=== PATIENT | male | born 1950 | race Caucasian/White ===

== ENCOUNTER → 2021-08-18 13:30 | Outpatient (CLI) | payer OTHER, SELFPAY ==
[2021-08-18 17:53] LABS: COVID19 -Nasal RAPID Negative (Negative)
== END ==
PROVIDERS: Visit Provider Nurse Practitioner Family
DX: Z20.822 Contact with and (suspected) exposure to COVID-19 (principal)
CPT/HCPCS: 87635

== ENCOUNTER 2021-08-19 08:53 | Day surgery (SDC) | payer OTHER, SELFPAY ==
[2021-08-19 09:57] VITALS: BP 133/87; PULSE 91; RESP 14; TEMP 36.8; O2SAT 96; BMI 23.0
[2021-08-19] MEDS: CATARACT EYE COMPOUND (10 DROPS/SYRINGE) 3 DROPS EYE-OP (10:10)
[2021-08-19] MEDS: PROPARACAINE 0.5% OPHTH SOL 2 DROPS EYE-OP (10:11)
--- NOTE | 2021-08-19 10:43 | PM.PREOP ---
Pre-operative Note Interval Note History & Physical reviewed/Exam performed by Physician: Yes Changes to H&P: No
--- NOTE | 2021-08-19 10:43 | PM.OP.1 ---
Operative Date/Time/Diagnoses Pre-op diagnosis: Nuclear cataract right eye Procedure & Clinicians Procedure: Cataract Surgery Same procedure as scheduled: Yes Surgeon: Mandeep Fink Anesthesia Type: MAC +/- and Sedation Operative Notes Procedure in detail: Patient brought to the operating suite. Tetracaine drops placed in the right eye. Marking isntrument was used to benigno the vertical and horizontal meridians. Patient was prepped and draped in sterile manner. Wire lid speculum was placed in the eye. Marking instrument was used to benigno the 5 degree meridian. Betadine drops were placed on the eye. This was irrigated. Lidocaine jelly was placed on the eye. A paracentesis port was created with a side-port blade. 0.1 mL 1% preservative free lidocaine was injected into the anterior chamber. The anterior chamber was deepened with viscoelastic. 2.6 mm keratome was used to create a temporal clear corneal incision. Cystotome and Utrata forceps were used to create continuous tear capsulorrhexis. Balanced salt solution was used to hydro dissect the nucleus. The phacoemulsification handpiece was inserted and the nucleus was removed using the stop and chop technique. The irrigation aspiration handpiece was inserted and the remaining cortex was removed. Anterior chamber was deepened with viscoelastic. An Candelaria KQJ013 intraocular lens with a power of 20.5 was injected into the capsular bag. Irrigation aspiration handpiece was inserted and the remaining viscoelastic was removed. The lens was rotated to the 5 degree meridian. Incision was hydrated with balanced salt solution and found to be leak free with pressure with Weck-Nimisha sponges. 0.1 mL Vigamox injected anterior chamber. 0.3 mL Kenalog 10 mg was injected subconjunctivally. Lid speculum was removed. The patient left the operating room in excellent condition. Complications: none Post-operative Condition: stable Disposition: same day surgery
[2021-08-19 11:36] VITALS: BP 129/79; PULSE 98; RESP 16; TEMP 36.6; O2SAT 97
== END 2021-08-19 12:05 | disposition home or self-care (01) ==
PROVIDERS: PCP Internal Medicine; Referring Provider Ophthalmology; Visit Provider Ophthalmology
PROC: (CPT 66984; principal; 2021-08-19 10:45)
DX: H25.11 Age-related nuclear cataract, right eye (principal)
CPT/HCPCS: 66984; J0171; J2250; J3301; V2787

== ENCOUNTER → 2021-08-25 08:45 | Outpatient (CLI) | payer OTHER, SELFPAY ==
[2021-08-25 11:56] LABS: COVID19 -Nasal RAPID Negative (Negative)
== END ==
PROVIDERS: PCP Internal Medicine; Visit Provider Nurse Practitioner Family
DX: Z20.822 Contact with and (suspected) exposure to COVID-19 (principal)
CPT/HCPCS: 87635

== ENCOUNTER 2021-08-26 06:39 | Day surgery (SDC) | payer OTHER, SELFPAY ==
[2021-08-26 07:08] VITALS: BP 132/83; PULSE 74; RESP 16; TEMP 36.6; O2SAT 97; BMI 23.0
--- NOTE | 2021-08-26 08:07 | P.OP_ITS ---
Operative Date/Time/Diagnoses Pre-op diagnosis: Nuclear Cataract Left eye Post-op diagnosis: same Procedure & Clinicians Same procedure as scheduled: Yes Surgeon: Mandeep Fink Anesthesia Type: MAC +/- and Sedation Operative Notes Procedure in detail: Patient brought to the operating suite. Tetracaine drops placed in the left eye. Marking instrument was used to benigno the vertical and horizontal meridians. Patient was prepped and draped in sterile manner. Wire lid speculum was placed in the eye. Betadine drops were placed on the eye. This was irrigated. Li docaine jelly was placed on the eye. A paracentesis port was created with a side-port blade. 0.1 mL 1% preservative free lidocaine was injected into the anterior chamber. The anterior chamber was deepened with viscoelastic. 2.6 mm keratome was used to create a temporal clear corneal incision. Cystotome and Utrata forceps were used to create continuous tear capsulorrhexis. Balanced salt solution was used to hydro dissect the nucleus. The phacoemulsification handpiece was inserted and the nucleus was removed using the stop and chop technique. The irrigation aspiration handpiece was inserted and the remaining cortex was removed. Anterior chamber was deepened with viscoelastic. An Candelaria ZQJ335 intraocular lens with a power of 20.5 was injected into the capsular bag. Irrigation aspiration handpiece was inserted and the remaining viscoelastic was removed. The lens was rotated to the 180 degree meridian. Incision was hydrated with balanced salt solution and found to be leak free with pressure with Weck- Nimisha sponges. 0.1 mL Vigamox injected anterior chamber. 0.3 mL Kenalog 10 mg was injected subconjunctivally. Lid speculum was removed. The patient left the operating room in excellent condition. Complications: none Post-operative Condition: stable Disposition: same day surgery
--- NOTE | 2021-08-26 08:07 | PM.PREOP ---
Pre-operative Note Interval Note History & Physical reviewed/Exam performed by Physician: Yes Changes to H&P: No
[2021-08-26] MEDS: HYALURONATE SODIUM 30 MG-10 MG/ML SYRINGES 1 BOX INTRAOCULA (08:24)
[2021-08-26] MEDS: MOXIFLOXACIN INJ 4 MG/0.8 ML VIAL EYE-OP (08:25)
[2021-08-26] MEDS: TRIAMCINOLONE 50 MG/5 ML VIAL INJ (08:27)
[2021-08-26] MEDS: PHENYLEPHRINE/LIDOCAINE VIAL (OR) 0.2 ML EYE-OP (08:27)
[2021-08-26] MEDS: BALANCED SALT IRRIG SOLN NO.2 500 ML, EPINEPHrine 1 MG IRR (08:28)
[2021-08-26] MEDS: LIDOCAINE 2% (GLYDO) 6 ML GEL TOP (08:29)
[2021-08-26] MEDS: TETRACAINE 0.5% OPHTH DROPS 4 ML 2 DROPS EYE-LEFT (08:29)
[2021-08-26 08:39] VITALS: BP 122/80; PULSE 85; RESP 15; TEMP 36.6; O2SAT 96
== END 2021-08-26 08:52 | disposition home or self-care (01) ==
PROVIDERS: PCP Internal Medicine; Referring Provider Ophthalmology; Visit Provider Ophthalmology
PROC: (CPT 66984; principal; 2021-08-26 08:15)
DX: H25.12 Age-related nuclear cataract, left eye (principal)
CPT/HCPCS: 66984; J0171; J2250; J3301; V2787

== ENCOUNTER → 2022-08-24 11:33 | Outpatient (CLI) | payer OTHER, SELFPAY | PROVIDERS: PCP Internal Medicine; Visit Provider Registered Nurse | DX: R31.9 Hematuria, unspecified (principal) | CPT/HCPCS: 87086 ==

== ENCOUNTER 2023-01-25 08:40 | Day surgery (SDC) | payer OTHER, SELFPAY ==
--- NOTE | 2023-01-25 | PATH_ITS ---
[facility] Accession Number: [id number] No. of containers..01 Tissue . 01 Material submitted: . colon - DESCENDING COLON POLYP . 01 Diagnosis: Descending Colon Polyp: Colonic mucosa with prominent benign lymphoid aggregate. Negative for dysplasia or malignancy. [facility] 01/28/2023 1440 Local . 01 Electronically signed: . Fidencio Umaña MD, PhD, Pathologist NPI- [id number] . 01 Gross description: . DESCENDING COLON POLYP: Received in formalin are 2 fragment(s) of kurtz, soft tissue measuring 0.7 x 0.2 x 0.1 cm to 0.1 x 0.1 x 0.1 cm submitted entirely in 1 cassette(s) /[facility] 01/27/2023 1430 Local . 01 Pathologist provided ICD-10: K63.5 . 01 CPT . 384847 Specimen Comment: A courtesy copy of this report has been sent to [phone] Performed at: 01 [facility] [address] [place] [address] [address], [place], [place] [id number] MD Guzman Murray MD Phone: [phone]
[2023-01-25 09:16] VITALS: BP 134/79; PULSE 78; RESP 17; TEMP 36.4; O2SAT 97; BMI 24.4
[2023-01-25] MEDS: LACTATED RINGERS 1,000 ML 42 ML IV (09:31)
--- NOTE | 2023-01-25 10:25 | PM.HP.1 ---
History of Present Illness History of Present Illness Date Patient Seen: 01/25/23 Time Patient Seen: 10:25 Chief complaint: SDC Narrative: Here for colon cancer screening. [facility] Social History household members: significant other Smoking Status: Never smoker alcohol intake: current Meds Home Medications and Allergies Home Medications Medication Instructions Recorded Confirmed Type No Known Home Medications 08/24/22 01/25/23 History Allergies Allergy/AdvReac Type Severity Reaction Status Date / Time No Known Drug Allergies Allergy Verified 01/25/23 09:16 Review of Systems Review of Systems ROS: Yes All systems reviewed with the patient and are negative except as otherwise documented Exam Vital Signs (past 8 hours): - 01/25/23 09:16 Temperature 97.5 F L Pulse Rate 78 Respiratory Rate 17 Blood Pressure 134/79 Pulse Oximetry 97 Oxygen Delivery Method Room Air Oxygen Flow Rate 0 Oxygen Delivery Method Room Air Oxygen Flow Rate 0 Const General: cooperative HENMT Head: normal to inspection Eyes General: appearance normal, both eyes and all related structures Neck Neck: normal visual inspection Chest Chest: normal inspection of the chest Resp Effort & Inspection: normal respiratory effort Cardio Rate: regular rate GI Inspection: normal to inspection Skin General: no rashes or lesions noted Neuro General: patient alert and patient awake Extrem General: normal to inspection and no pedal edema Psych Appearance: grossly normal Assessment & Plan Assessment & Plan narrative: 73-year-old male here for colon cancer screening. No family history of colon cancer. Colonoscopy is planned for today.
--- NOTE | 2023-01-25 10:26 | PM.PREOP ---
Pre-operative Note Interval Note History & Physical reviewed/Exam performed by Physician: Yes Changes to H&P: No ASA Class (for procedural sedation): I
--- NOTE | 2023-01-25 11:40 | PM.OP.COLON ---
Operative Date/Time/Diagnoses Date of procedure: 01/25/23 Time of procedure: 11:40 Pre-op diagnosis: Colon cancer screening Post-op diagnosis: same Procedure & Clinicians Study performed: Colonoscopy with cold snare polypectomy Same procedure as scheduled: Yes Indications: Colon cancer screening Surgeon: Darron Maharaj Procedure Notes SCOAP/Timeout: Done Procedure in detail: After the risks and benefits were explained, written and verbal informed consent was obtained. The patient was brought into the procedure room and placed into the left lateral decubitus position. Please see anesthesia notes for sedation details. Digital rectal examination was accomplished. The scope was introduced into the patient and advanced under direct visualization to the cecum as identified by the appendiceal orifice and ileocecal valve. The scope was slowly withdrawn to carefully examine the mucosa for any defects or lesions. Comprehensive imaging was accomplished throughout the rectum including the dentate line. The colon was decompressed, the scope was then removed from the patient who tolerated the procedure well. Bowel prep adequate Pediatric colonoscope Scope withdrawal time: 6 minutes Sedation minutes: 23 Complications: none Impression: The patient had fairly extensive diverticulosis throughout the left colon. In the distal descending there were a couple of small polyps removed by way of cold snare. The smaller being 3 mm the larger being perhaps 5-6 mm. The larger of the 2 was retrieved. We lost the smaller after it was excised in the residual prep fluid. No additional significant pathology was appreciated throughout. Grade 2 internal hemorrhoids were noted on direct views. Endoscopic diagnosis 1. Diverticulosis 2. Diminutive colon polyps 3. Grade 2 hemorrhoids Post-procedure Plan for aftercare: 1. Await histopathology. 2. If adenomatous features are identified, repeat colonoscopy will be suggested for 7 years. Disposition: PACU
[2023-01-25 11:43] VITALS: BP 106/72; PULSE 76; RESP 17; TEMP 36.6; O2SAT 95
[2023-01-25 11:48] VITALS: BP 109/70; PULSE 78; RESP 14; O2SAT 96
[2023-01-25 11:53] VITALS: BP 127/80; PULSE 82; RESP 16; TEMP 36.6; O2SAT 96
[2023-01-25 11:58] VITALS: BP 118/84; PULSE 74; RESP 13; O2SAT 96
[2023-01-25 12:04] VITALS: BP 121/84; PULSE 74; RESP 16; O2SAT 96
== END 2023-01-25 12:15 | disposition home or self-care (01) ==
PROVIDERS: PCP Internal Medicine; Referring Provider Internal Medicine Gastroenterology; Visit Provider Internal Medicine Gastroenterology
PROC: 0DJD8ZZ Inspection of Lower Intestinal Tract, Via Natural or Artificial Opening Endoscopic (ICD-10-PCS; CPT 45378; principal; 2023-01-25 11:00)
DX: Z12.11 Encounter for screening for malignant neoplasm of colon (principal); K57.30 Diverticulosis of large intestine without perforation or abscess without bleeding; K64.1 Second degree hemorrhoids
CPT/HCPCS: 45385; J2704

== ENCOUNTER → 2024-03-21 08:34 | Outpatient (CLI) | payer OTHER, SELFPAY ==
--- NOTE | 2024-03-21 08:35 | DI.US.S_ITS ---
PROCEDURE: US ABD AORTA ANEURYSM SCREEN INDICATIONS: HISTORY OF SMOKING / AAA SCREENING TECHNIQUE: Real time scanning was performed of the aorta and iliac arteries, with image documentation. COMPARISON: None. FINDINGS: Aorta: Proximal aorta is not well seen.. Mid-aorta measures 2.1 cm. Distal aortic diameter is 1.9 cm. Iliac arteries: Right common iliac artery measures 1.6 cm. Left common iliac artery measures 1.7 cm. IMPRESSION: No aneurysmal dilation. Dictated by: Nara Monahan M.D. on 03/21/2024 at 14:08 Approved by: Nara Monahan M.D. on 03/21/2024 at 14:08
== END ==
PROVIDERS: PCP Internal Medicine; Referring Provider Family Medicine; Visit Provider Family Medicine
DX: Z87.891 Personal history of nicotine dependence (principal); Z13.6 Encounter for screening for cardiovascular disorders
CPT/HCPCS: 76706